=== PATIENT | male | born 1970 | race Hispanic/Latino ===

== ENCOUNTER → 2017-09-19 | Outpatient (CLI) | payer OTHER ==
--- NOTE | 2017-09-19 09:38 | Diagnostic Imaging Report ---
TECHNIQUE: Magnetic resonance imaging of the right SHOULDER was performed WITHOUT injected contrast. COMPARISON: None available. HISTORY: Pain FINDINGS: MUSCLES AND TENDONS: Rotator Cuff: Tendons: Supraspinatus: Intact Infraspinatus: Intact Teres Minor: Intact Subscapularis: Intact Muscles: No focal muscle atrophy. Biceps Tendon: The long head of the biceps tendon is intact and within the intertubercular groove. GLENOHUMERAL JOINT: Glenoid Labrum: Superior labral fraying. Articular Cartilage: No focal defect. AC JOINT AND ACROMION: Moderate hypertrophic degenerative changes of the acromioclavicular joint with edema. The acromion is unremarkable. BONE: No acute fracture. SOFT TISSUES: Subacromial subdeltoid bursal fluid. IMPRESSION: Acromioclavicular arthrosis with stress edema. Superior labral fraying. Intact rotator cuff. Signed by: Dr. Ramesh Ayala M.D. on 09/19/2017 9:35 AM
== END ==
LOC: MRI 07:26
PROVIDERS: ATTEND Family Medicine
DX: M25.511 Pain in right shoulder (principal); S49.91XD Unspecified injury of right shoulder and upper arm, subsequent encounter; R29.898 Other symptoms and signs involving the musculoskeletal system

== ENCOUNTER → 2020-03-23 | Outpatient (CLI) | payer OTHER ==
[~2020-03-23] MED LIST: IOPAMIDOL 370 MG/ML 200 ML INFUS..BTL INJ ONE; METOPROLOL TARTRATE INJ 1 MG/ML VIAL ONE; NITROGLYCERIN 0.4 MG SUBL ONE; SODIUM CHLORIDE 0.9% 100 ML ONE
[2020-03-23 08:25] LABS: BLOOD UREA NITROGEN 20 mg/dL (7-26); BUN/CREATININE RATIO 21 (6-25); CREATININE, SERUM 0.94 mg/dL (0.72-1.25); EST GLOMERULAR FILTRATION RATE > 60 ML/MIN (60-)
--- NOTE | 2020-03-24 11:08 | Diagnostic Imaging Report ---
EXAM: CALCIUM SCORE AND CORONARY CTA INDICATION: ^[id number] ^[id number] ^[facility] COMPARISON: CTA coronary with calcium score 03/10/2017 TECHNIQUE: Multi-detector CT technology was employed (64 MDCT [employer]). Minimal slice thickness was performed following the intravenous administration of contrast material. The patient was premedicated with 2.5 mg i.v. metoprolol and 0.8 mg sublingual nitroglycerin for heart rate control and coronary dilation, respectively. IV CONTRAST: 100 mL of Isovue-370 ORAL CONTRAST: None COMPLICATIONS: None RADIATION DOSE: Total DLP: 1480 mGy*cm Estimated effective dose: (DLP x 0.015 x size factor) mSv CTDIvol has been reviewed. It is below the limits set by the Radiation Protocol Committee (RPC). For optimization of anatomic evaluation, multiplanar reconstruction, maximum intensity projections, and advanced 3-D off-line postprocessing were performed on a dedicated stand-alone workstation under the direct supervision of the interpreting physician. QUALITY: Excellent FINDINGS: CALCIUM SCORE: The observed Agatston Calcium Score of 0.00. The Agatston score for each vessel is as follows: LM: 0.00 LAD: 0.00 LCx: 0.00 RCA: 0.00 DISTRIBUTION OF THE CALCIFIED PLAQUES: No calcified plaques identified in the coronary arteries. CORONARY ANATOMY: There is normal origin of the coronary arteries. Left Main Coronary Artery: The left main is normal sized vessel that bifurcates into the LAD and circumflex. There is no evidence of atherosclerotic changes or stenotic disease. Left Anterior Descending Coronary Artery: The LAD is a normal size vessel that wraps around the apex. It gives rise to 2 acute diagonal branches. There is no evidence of atherosclerotic changes or stenotic disease. Left Circumflex Coronary Artery: The LCX is a normal size vessel, which is non-dominant. It gives rise to 2 obtuse marginal branches. There is no evidence of atherosclerotic changes or stenotic disease. Right Coronary Artery: The RCA is a normal size vessel, which is dominant. It gives rise to a conus branch, AV duke branch, and 2 acute marginal branches. In its distal segment it bifurcates into the PDA and PV branch. There is no evidence of atherosclerotic changes or stenotic disease. CARDIAC MORPHOLOGY AND FUNCTION: The right and left atria and ventricles are morphologically normal. LIMITED CHEST: Limited views of the visualized chest show no abnormality within chest wall and mediastinum. No mediastinal lymphadenopathy. Mild bilateral central peribronchial wall thickening without bronchiectasis, more prominent when compared to prior CT may reflect small airway disease or acute bronchitis. The visualized portions of the ascending and descending thoracic aorta are of normal size. Small hiatal hernia. LIMITED ABDOMEN: Limited images of the upper abdomen reveal no abnormalities of the visualized organs. BONES: No acute osseous abnormalities. IMPRESSION: 1. Total Agatston Calcium Score: 0.00, representing no identified calcified plaques in the coronary arteries. 2. Normal coronary anatomy without evidence of atherosclerotic changes or stenotic disease. 3. Mild bilateral central peribronchial wall thickening without bronchiectasis, more prominent when compared to prior CT may reflect small airway disease or acute bronchitis. Signed by: Dr. Karina Palomino M.D. on 03/24/2020 11:05 AM
== END ==
LOC: CT 07:49
PROVIDERS: ATTEND Family Medicine
DX: Z00.00 Encounter for general adult medical examination without abnormal findings (principal); Z13.0 Encounter for screening for diseases of the blood and blood-forming organs and certain disorders involving the immune mechanism
CPT/HCPCS: 36415; 75574; 82565; 84520; J7050; Q9967

== ENCOUNTER 2022-04-14 18:54 | Emergency (ER) | payer OTHER ==
[~2022-04-14] VITALS: Ht 180.3 cm; Wt 88.5 kg
== END 2022-04-14 21:06 | disposition home or self-care (01) ==
LOC: ER 19:02
DX: R05.9 Cough, unspecified (principal); J10.1 Influenza due to other identified influenza virus with other respiratory manifestations; J45.909 Unspecified asthma, uncomplicated; E78.5 Hyperlipidemia, unspecified; Z87.442 Personal history of urinary calculi
CPT/HCPCS: 71046; 99283